=== PATIENT | female | born 1955 | race Two or more races ===

== ENCOUNTER 2021-04-07 09:31 | Outpatient (AMBR) | payer MEDICARE, MEDICAID, SELFPAY ==
--- NOTE | 2021-03-31 15:29 | PT.OIERPT ---
PT OP Initial Eval Patient Information Visit Reasons: low back pain Medical Diagnosis: M54.5 Treatment Dx #1: L/S Mobility Deficits Treatment Dx #2: Back Pain Start of Care: 03/31/21 Date of Onset: 5 years ago Initial Assessment Subjective Pt is a 66 y/o female c/o chronic back pain (04/22) with BLE numbness tingling R>L started several years ago but recently worsening. Pt mention that she used to work at [employer] and did a lot of lifting and loading heavy items. Pt's CT scan found several spinal stenosis L4-L5 (8 mm central bulge) and L5-S1 (5 mm central bulge). 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 Pt currently has limitation with walking, chores, self care, cooking, cleaning, recreational activities, and standing for long period of time. Objective L/S AROM: all motions are WFL excep extension to neutral with pain Hip PROM: all motions are WFL except IR bilaterally Hip MMTs Glute Med: 3-/5 Glute Max: 3-/5 Muscle Length: bilateral HS tightness R>L Special Test (+) slump Assessment Pt demonstrate back pain consistent with CT scan findings leading to decline function. Pt will attempt physical therapy if pain persist Pt will be refer back to provider for further consultation Short Term and Continuous Miner Goals 1) Increase L/S AROM WFL in 6 wks to be able to perform chores 2) Increase core strength WFL in 6 wks to be able to perform recreational activities 3) Increase hip MMTs grossly to 3+/5 in 6 wks to be able to ambulate more than 45 mins 4) Decrease back pain to 3/10 in 6 wks to be able to stand more than 45 mins 5) Indep with HEP Treatment Plan 1) Manual Therapy 2) Therapeutic Activities 3) Therapeutic Exercises 4) Modalities (ice, heat) 5) Balance Training Frequency and Duration 2 x wk for 6 wks Certification Dates: 03/31/21 to 07/01/21 Office Procedures PT Procedures PT Date of Service: 03/31/21 OP PT Eval Mod Complex 30 minutes: Yes
--- NOTE | 2021-04-07 11:15 | PT.ODAYNRPT ---
PT Outpatient Daily Note Date of Service: 04/07/21 OP Daily Note Visit Reasons: low back pain Outpatient Physical Therapy Treatment Date: 04/07/21 Subjective: Pt's back is the same. Pt still notice some numbness down her right LE Objective: Please see flow chart for list of ther ex performed Assessment: tolerate exercises; right knee pain limit her ability to pull on the LE with SKTC Plan: Continue with PT Length of Time (minutes) of Treatment: 30 Minutes Office Procedures PT Procedures PT Date of Service: 03/31/21 OP PT Eval Mod Complex 30 minutes: Yes PT Procedures PT Date of Service: 04/07/21 Therapeutic Exercise 30 minutes: Yes
== END 2021-04-12 23:59 | disposition home or self-care (01) ==
PROVIDERS: PCP Internal Medicine; Referring Provider Internal Medicine; Visit Provider Internal Medicine
DX: M54.5 Low back pain (principal); G89.29 Other chronic pain; R20.0 Anesthesia of skin; R20.2 Paresthesia of skin; R26.2 Difficulty in walking, not elsewhere classified
CPT/HCPCS: 97110; 97162

== ENCOUNTER 2021-05-11 11:26 | Outpatient (AMBR) | payer MEDICARE, MEDICAID, SELFPAY ==
--- NOTE | 2021-04-18 09:31 | PT.ODAYNRPT ---
PT Outpatient Daily Note Date of Service: 04/18/21 OP Daily Note Visit Reasons: low back pain Outpatient Physical Therapy Treatment Date: 04/18/21 Subjective: Pt mention that her back was better after last treatment session, however, the long days without PT seems to make her back hurt again Objective: Please see flow chart for list of ther ex performed Assessment: tolerate exercises with minimal pain Plan: Continue with PT Length of Time (minutes) of Treatment: 30 Minutes Office Procedures PT Procedures PT Date of Service: 04/18/21 Therapeutic Exercise 30 minutes: Yes
--- NOTE | 2021-04-20 09:34 | PT.ODAYNRPT ---
PT Outpatient Daily Note Date of Service: 04/20/21 OP Daily Note Visit Reasons: low back pain Outpatient Physical Therapy Treatment Date: 04/20/21 Subjective: Pt mention that her back is better and does not want the heat with exercises today. Objective: Please see flow chart for list of ther ex performed Assessment: performed all exercises well without heat today. cues to pace with side step due to noted hip fatigue after 4x. Also cue patient to decrease use of bilateral bicep with row exercise Plan: Continue with PT Length of Time (minutes) of Treatment: 30 Minutes Office Procedures PT Procedures PT Date of Service: 04/18/21 Therapeutic Exercise 30 minutes: Yes PT Procedures PT Date of Service: 04/20/21 Therapeutic Exercise 30 minutes: Yes
--- NOTE | 2021-05-11 12:01 | PT.ODAYNRPT ---
PT Outpatient Daily Note Date of Service: 05/11/21 OP Daily Note Visit Reasons: low back pain Outpatient Physical Therapy Treatment Date: 05/11/21 Subjective: Pain in still in my back and my knee hurts. My back feels better with this. (pt referring to traction) Objective: Please see flowsheet for therex performed Assessment: Pt tolerated all therex with some discomfort throughout session. Added manual traction to decrease pain to low back. Pt reported feels better when manual traction applied for low back. Plan: Continue with POC Length of Time (minutes) of Treatment: 30 Minutes Office Procedures PT Procedures PT Date of Service: 04/18/21 Therapeutic Exercise 30 minutes: Yes PT Procedures PT Date of Service: 05/11/21 Therapeutic Exercise 30 minutes: Yes PT Procedures PT Date of Service: 04/20/21 Therapeutic Exercise 30 minutes: Yes
== END 2021-05-13 23:59 | disposition home or self-care (01) ==
PROVIDERS: PCP Internal Medicine; Referring Provider Internal Medicine; Visit Provider Internal Medicine
DX: M54.5 Low back pain (principal); G89.29 Other chronic pain; R20.0 Anesthesia of skin; R20.2 Paresthesia of skin; R26.2 Difficulty in walking, not elsewhere classified
CPT/HCPCS: 97110

== ENCOUNTER → 2024-10-01 | Outpatient (CLI) | payer OTHER, MEDICAID, SELFPAY ==
[2024-10-01 15:51] LABS: Collection Type, Urine Clean Catch
[2024-10-01 17:19] LABS: Bacteria,Urine Rare; Bilirubin,Urine Negative (Negative); Blood,Urine Negative (Negative); Clarity,Urine Clear (Clear/Hazy); Color,Urine Lt-Yellow (Lt Yel-Yel); Glucose, Urine Negative (Negative); Ketones,Urine Negative (Negative); Leukocyte Esterase,Urine Negative (Negative); Nitrite,Urine Positive (Negative); PH,Urine 6.5 (5.0-7.0); Protein,Urine Negative (Neg - Trace); RBC,Urine < 1 /hpf (0-3); Specific Gravity,Urine 1.019 (1.001-1.035); Squamous Epithelial Cell,Urine 1 /hpf (0-5); Urobilinogen,Urine Negative mg/dL (0.0-1.0); WBC,Urine 5 /hpf (0-5)
== END | disposition home or self-care (01) ==
LOC: COPL 15:46 → SLDO 15:47
PROVIDERS: PCP Physician Assistant; Referring Provider Physician Assistant; Visit Provider Physician Assistant
DX: N39.0 Urinary tract infection, site not specified (principal)
CPT/HCPCS: 81001; 87077; 87086; 87186

== ENCOUNTER → 2024-10-19 | Outpatient (CLI) | payer OTHER, MEDICAID, SELFPAY ==
[2024-10-19 17:37] LABS: Collection Type, Urine Clean Catch
[2024-10-19 18:42] LABS: Bacteria,Urine 1+; Bilirubin,Urine Negative (Negative); Blood,Urine Negative (Negative); Clarity,Urine Clear (Clear/Hazy); Color,Urine Lt-Yellow (Lt Yel-Yel); Glucose, Urine Negative (Negative); Ketones,Urine Negative (Negative); Leukocyte Esterase,Urine Negative (Negative); Nitrite,Urine Negative (Negative); PH,Urine 6.5 (5.0-7.0); Protein,Urine Negative (Neg - Trace); RBC,Urine 1 /hpf (0-3); Specific Gravity,Urine 1.016 (1.001-1.035); Squamous Epithelial Cell,Urine 1 /hpf (0-5); Urobilinogen,Urine Negative mg/dL (0.0-1.0); WBC,Urine 5 /hpf (0-5)
== END | disposition home or self-care (01) ==
LOC: SLDO 17:30
PROVIDERS: PCP Family Medicine; Referring Provider Family Medicine; Visit Provider Family Medicine
DX: N39.0 Urinary tract infection, site not specified (principal)
CPT/HCPCS: 81001; 87077; 87086; 87186

== ENCOUNTER → 2024-10-26 | Outpatient (CLI) | payer OTHER, SELFPAY ==
[2024-10-26 10:45] LABS: Basophils % (Auto) 1 % (0-2.5); Eosinophils # (Auto) 0.1 Thou/mm3 (0.0-0.5); Eosinophils % (Auto) 3 % (0-10); Hematocrit 46.1 % (36.0-46.0); Hemoglobin 14.8 g/dL (12.0-16.0); Immature Granulocytes % (Auto) 0 % (0-0); Immature Granulocytes Auto 0.01 Thou/mm3 (0.00-0.00); Lymphocytes # (Auto) 1.5 Thou/mm3 (1.0-4.8); Lymphocytes % (Auto) 36 % (10-50); Mean Corpuscular HGB Conc 32.1 g/dl (31.0-37.0); Mean Corpuscular Hemoglobin 26.3 pg (25.0-35.0); Mean Corpuscular Volume 82 fL (80-100); Monocytes # (Auto) 0.3 Thou/mm3 (0.0-0.8); Monocytes % (Auto) 6 % (0-12); Neutrophils # (Auto) 2.3 Thou/mm3 (1.8-7.7); Neutrophils % (Auto) 54 % (37-80); Nucleated Red Blood Cell % 0 /100 WBC (0); Platelet Count 230 Thou/mm3 (140-440); RDW Standard Deviation 40.6 fL (36.4-46.3); Red Blood Count 5.62 Miln/mm3 (4.00-5.20); White Blood Count 4.2 Thou/mm3 (3.6-11.0)
--- NOTE | 2024-10-26 10:53 | EKG_ITS ---
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
[2024-10-26 11:11] LABS: Alanine Aminotransferase 14 U/L (10-49); Albumin, Serum 4.7 gm/dL (3.4-4.8); Alkaline Phosphatase 79 U/L (46-116); Anion Gap 9 (7-16); Aspartate Amino Transferase 22 U/L (0-34); BUN/Creatinine Ratio 18 Ratio (12-20); Bilirubin,Total 0.6 mg/dL (0.3-1.2); Blood Urea Nitrogen 18 mg/dL (9-23); Carbon Dioxide 30.2 mMol/L (20.0-31.0); Chloride 102 mMol/L (98-107); Globulin 2.3 gm/dL (2.3-3.5); Glucose 109 mg/dL (74-106); Osmolality,Calculated 284 (275-295); Potassium 3.8 mMol/L (3.4-5.1); Sodium 141 mMol/L (136-145); eGFR > 60 See Note
== END | disposition home or self-care (01) ==
LOC: CDIM 09:57 → COPL 10:00
PROVIDERS: PCP Family Medicine; Referring Provider Orthopaedic Surgery; Visit Provider Orthopaedic Surgery
DX: Z01.812 Encounter for preprocedural laboratory examination (principal); Z01.818 Encounter for other preprocedural examination
CPT/HCPCS: 36415; 80053; 85025; 87081; 93005

== ENCOUNTER → 2024-10-29 | Outpatient (CLI) | payer OTHER, MEDICAID, SELFPAY ==
--- NOTE | 2024-10-29 13:15 | XR_ITS ---
Examination: Diagnostic digital mammography, unilateral, right Computer aided detection 3-D breast Tomosynthesis, unilateral Date and time of exam: October 29, 2024 1316 hours INDICATIONS: Mammogram April 01, 2024 grouped microcalcifications probably benign April 01, 2024 Technique: Nonmagnified MLO, CC views of the right breast have been obtained, reconstructed from 3-D Tomosynthesis images. R2 computer aided detection program utilized for evaluation of suspicious masses and/or abnormal calcifications. 3-D Tomosynthesis images obtained. Findings: Scattered areas of fibroglandular density Benign calcifications No suspicious masses Impression: BI-RADS category 2: Benign findings Return to yearly follow-up mammography
== END | disposition home or self-care (01) ==
LOC: CDIM 13:00
PROVIDERS: PCP Family Medicine; Referring Provider Physician Assistant; Visit Provider Physician Assistant
DX: R92.323 Mammographic fibroglandular density, bilateral breasts (principal)
CPT/HCPCS: 77061; 77065; G0279

== ENCOUNTER → 2025-01-13 | Outpatient (CLI) | payer OTHER, MEDICAID, SELFPAY ==
--- NOTE | 2025-01-13 15:09 | XR_ITS ---
Examination: PA lateral chest 2 views TECHNIQUE: Upright PA lateral chest 2 views Exam date and time: November 15, 2024 at 1521 hours INDICATIONS: Shortness of breath beginning one month ago. FINDINGS: Normal heart size. No pneumonia or pulmonary edema Moderate thoracic spondylosis IMPRESSION: No active disease
[2025-01-13 16:03] LABS: Collection Type, Urine Clean Catch
[2025-01-13 16:32] LABS: Basophils % (Auto) 0 % (0-2.5); Eosinophils # (Auto) 0.2 Thou/mm3 (0.0-0.5); Eosinophils % (Auto) 3 % (0-10); Hematocrit 41.3 % (36.0-46.0); Hemoglobin 13.7 g/dL (12.0-16.0); Immature Granulocytes % (Auto) 0 % (0-0); Immature Granulocytes Auto 0.01 Thou/mm3 (0.00-0.00); Lymphocytes # (Auto) 1.7 Thou/mm3 (1.0-4.8); Lymphocytes % (Auto) 33 % (10-50); Mean Corpuscular HGB Conc 33.2 g/dl (31.0-37.0); Mean Corpuscular Hemoglobin 26.9 pg (25.0-35.0); Mean Corpuscular Volume 81 fL (80-100); Monocytes # (Auto) 0.4 Thou/mm3 (0.0-0.8); Monocytes % (Auto) 7 % (0-12); Neutrophils % (Auto) 57 % (37-80); Nucleated Red Blood Cell % 0 /100 WBC (0); Platelet Count 214 Thou/mm3 (140-440); RDW Standard Deviation 42.5 fL (36.4-46.3); Red Blood Count 5.09 Miln/mm3 (4.00-5.20); White Blood Count 5.3 Thou/mm3 (3.6-11.0)
[2025-01-13 16:39] LABS: Bilirubin,Urine Negative (Negative); Blood,Urine Negative (Negative); Clarity,Urine Clear (Clear/Hazy); Color,Urine Lt-Yellow (Lt Yel-Yel); Culture Indicated,Urine Not Indicated; Glucose, Urine Negative (Negative); Ketones,Urine Negative (Negative); Leukocyte Esterase,Urine Negative (Negative); Nitrite,Urine Negative (Negative); Protein,Urine Negative (Neg - Trace); RBC,Urine 1 /hpf (0-3); Specific Gravity,Urine 1.028 (1.001-1.035); Squamous Epithelial Cell,Urine < 1 /hpf (0-5); Urobilinogen,Urine Negative mg/dL (0.0-1.0); WBC,Urine < 1 /hpf (0-5)
[2025-01-13 16:40] LABS: Alanine Aminotransferase 13 U/L (10-49); Albumin, Serum 4.4 gm/dL (3.4-4.8); Alkaline Phosphatase 87 U/L (46-116); Anion Gap 8 (7-16); Aspartate Amino Transferase 20 U/L (0-34); BUN/Creatinine Ratio 23 Ratio (12-20); Bilirubin,Total 0.3 mg/dL (0.3-1.2); Blood Urea Nitrogen 23 mg/dL (9-23); Calcium 9.5 mg/dL (8.3-10.6); Calcium (Corrected) 9.5 mg/dL (8.5-10.1); Carbon Dioxide 28.6 mMol/L (20.0-31.0); Chloride 108 mMol/L (98-107); Globulin 2.2 gm/dL (2.3-3.5); Glucose 100 mg/dL (74-106); Osmolality,Calculated 292 (275-295); Sodium 145 mMol/L (136-145); Total Protein 6.6 gm/dL (5.7-8.2); eGFR > 60 See Note
[2025-01-13 17:24] LABS: D-Dimer 878 ng/mL (<600)
== END | disposition home or self-care (01) ==
LOC: CDIM 15:09 → COPL 15:29
PROVIDERS: PCP Nurse Practitioner Family; Referring Provider Nurse Practitioner Family; Visit Provider Radiology Diagnostic Radiology
DX: R06.02 Shortness of breath (principal)
CPT/HCPCS: 36415; 71046; 80053; 81001; 85025; 85379

== ENCOUNTER → 2025-01-27 | Outpatient (CLI) | payer OTHER, MEDICAID, SELFPAY ==
--- NOTE | 2025-01-27 09:30 | XR_ITS ---
Examination: CT chest with intravenous contrast 2-D sagittal and coronal reconstructions Exam date and time: January 27, 2025 1007 hours INDICATIONS: Dyspnea on exertion one month CTDI:vol (mGy) 11.5 DLP: (mGycm) 368 Technique: Multiple axial sections of the thorax have been obtained. Sections have been obtained, 3 mm slice thickness. Mediastinal and lung density settings have been obtained. Intravenous contrast administered, 60 cc Isovue-370. 2-D sagittal, coronal images obtained. Low dose protocols were performed. One or more of the following dose reduction techniques were used; automated exposure control, adjustment of the mA and/or KV according to patient size, use of iterative reconstruction technique. Findings: No thoracic aortic aneurysmal dilatation or dissection Pulmonary artery segments are not enlarged No pulmonary artery filling defects Mild calcification left anterior descending coronary artery No pneumonia or pulmonary edema or pleural disease 9 mm pleural-based pulmonary nodule posterior left lung image 109 No visualized liver or splenic lesion Gallstones No pancreatic or adrenal mass No hydronephrosis IMPRESSION: No mediastinal lymphadenopathy No pneumonia, pulmonary edema or pleural disease. A 9 mm nodule posterior left lung, with this study as baseline recommend 6 month follow-up CT chest without contrast
== END | disposition home or self-care (01) ==
LOC: CCTX 09:20
PROVIDERS: PCP Family Medicine; Referring Provider Nurse Practitioner Family; Visit Provider Nurse Practitioner Family
DX: R91.1 Solitary pulmonary nodule (principal)
CPT/HCPCS: 71260; A4649; Q9967

== ENCOUNTER → 2025-02-15 | Outpatient (CLI) | payer OTHER, SELFPAY ==
[2025-02-15 10:39] LABS: Collection Type, Urine Clean Catch
[2025-02-15 11:34] LABS: Bilirubin,Urine Negative (Negative); Blood,Urine Negative (Negative); Clarity,Urine Clear (Clear/Hazy); Color,Urine Lt-Yellow (Lt Yel-Yel); Culture Indicated,Urine Not Indicated; Glucose, Urine Negative (Negative); Ketones,Urine Negative (Negative); Leukocyte Esterase,Urine Negative (Negative); Nitrite,Urine Negative (Negative); PH,Urine 6.5 (5.0-7.0); Protein,Urine Negative (Neg - Trace); RBC,Urine 4 /hpf (0-3); Squamous Epithelial Cell,Urine 2 /hpf (0-5); Urobilinogen,Urine Negative mg/dL (0.0-1.0); WBC,Urine 1 /hpf (0-5)
[2025-02-15 11:38] LABS: Glucose Estimated Average 114 mg/dL (80-131); Hemoglobin A1C 5.6 % Hgb (4.8-6.0)
[2025-02-15 11:39] LABS: Cardiac Risk Estimate 3.1 RATIO (3.7-5.6); Cholesterol 146 mg/dL (132-200); HDL Cholesterol 47 mg/dL (40-60); LDL Cholesterol,Calculated 82 mg/dL (0-130); Thyroid Stimulating Hormone 1.05 uIU/mL (0.55-4.78); Triglycerides 86 mg/dL (30-150); Vitamin D 25 Hydroxy Total 39.9 ng/mL (7.3-40.2)
== END | disposition home or self-care (01) ==
LOC: COPL 09:54
PROVIDERS: PCP Nurse Practitioner Family; Referring Provider Nurse Practitioner Family; Visit Provider Nurse Practitioner Family
DX: Z00.00 Encounter for general adult medical examination without abnormal findings (principal)
CPT/HCPCS: 36415; 80061; 81001; 82306; 83036; 84443

== ENCOUNTER → 2025-03-15 | Outpatient (CLI) | payer OTHER, SELFPAY ==
--- NOTE | 2025-03-15 11:30 | XR_ITS ---
Examination: Screening digital mammography, bilateral Computer aided detection 3-D breast Tomosynthesis, bilateral Date and time of exam: March 15, 2025 1133 hours Compared to mammograms dating to October 20, 2018 Indication: Screening Technique: Nonmagnified MLO, CC views of the breasts to been obtained, reconstructed from 3-D Tomosynthesis images. R2 computer aided detection program utilized for evaluation of suspicious masses and/or abnormal calcifications. 3-D Tomosynthesis images obtained. Findings: Scattered areas of fibroglandular density. Grouped microcalcifications retroareolar region right breast unchanged which appear benign 8mm focal asymmetry nipple level right breast posterior depth, 9.2 cm from the nipple Impression: BI-RADS Category 0: Incomplete: Need additional imaging evaluation 8 mm focal asymmetry nipple level right breast posterior depth, 9.2 cm from the nipple, recommend follow-up spot tomographic CC view, spot tomographic MLO view upper right breast posterior depth, right breast sonography to complete the workup
== END | disposition home or self-care (01) ==
LOC: CDIM 11:28
PROVIDERS: Referring Provider Family Medicine; Visit Provider Family Medicine
DX: Z12.31 Encounter for screening mammogram for malignant neoplasm of breast (principal); N64.89 Other specified disorders of breast; R92.8 Other abnormal and inconclusive findings on diagnostic imaging of breast
CPT/HCPCS: 77063; 77067

== ENCOUNTER → 2025-03-29 | Outpatient (CLI) | payer OTHER, MEDICAID, SELFPAY ==
--- NOTE | 2025-03-29 | XR_ITS ---
Examination: Lumbar spine, 5 views Technique: Lumbar spine AP, lateral, coned lateral lower lumbar spine, bilateral obliques 5 views Exam date and time: March 29, 2025 1251 hours Comparison February 28, 2024 INDICATIONS: Low back pain 5 months, history lumbar spine surgery one year ago. FINDINGS: Stable alignment transpedicular lumbar fusion L3-S1 with disc spacers Moderate to advanced degenerative disc disease above the fusion site, L1-L2, L2-L3 No lumbar fracture IMPRESSION: Stable and satisfactory alignment lumbar fusion L3-S1 Moderate to advanced degenerative disc disease above the fusion site, L1-L2, L2-L3
== END | disposition home or self-care (01) ==
PROVIDERS: PCP Family Medicine; Referring Provider Orthopaedic Surgery Orthopaedic Surgery of the Spine; Visit Provider Orthopaedic Surgery Orthopaedic Surgery of the Spine
DX: M51.369 Other intervertebral disc degeneration, lumbar region without mention of lumbar back pain or lower extremity pain (principal); Z47.89 Encounter for other orthopedic aftercare
CPT/HCPCS: 72110

== ENCOUNTER → 2025-04-02 | Outpatient (CLI) | payer OTHER, MEDICAID, SELFPAY ==
--- NOTE | 2025-04-02 11:15 | XR_ITS ---
Examination: Breast ultrasound, unilateral, right complete Date and time of exam: April 02, 2025 1124 hours INDICATIONS: Mammogram March 15, 2025 8mm focal asymmetry nipple level right breast posterior depth Technique: Real-time briceno scale ultrasonographic imaging performed right breast including all 4 quadrants as well as nipple retroareolar and axillary region. Findings: 6:00 cyst 7 x 5 mm No suspicious solid nodules IMPRESSION: BI-RADS Category 2: Benign findings
--- NOTE | 2025-04-02 11:45 | XR_ITS ---
Examination: Diagnostic digital mammography, unilateral, right Computer aided detection 3-D breast Tomosynthesis, unilateral Date and time of exam: April 02, 2025 1135 hours INDICATIONS: 8 mm focal asymmetry nipple level right breast posterior depth on mammogram March 15, 2025 Technique: Nonmagnified MLO, CC views of the right breast have been obtained, reconstructed from 3-D Tomosynthesis images. R2 computer aided detection program utilized for evaluation of suspicious masses and/or abnormal calcifications. 3-D Tomosynthesis images obtained. Findings: Scattered areas of fibroglandular density Stable grouped microcalcifications retroareolar region right breast Stable focal asymmetry posterior right breast slightly outer right breast on the spot compression CC view nipple level right breast on the MLO view Impression: BI-RADS category 3: Probably benign findings Recommend 6 month bilateral mammography follow-up
== END | disposition home or self-care (01) ==
LOC: CDIM 11:11
PROVIDERS: PCP Family Medicine; Referring Provider Family Medicine; Visit Provider Family Medicine
DX: R92.331 Mammographic heterogeneous density, right breast (principal)
CPT/HCPCS: 76641; 77061; 77065; G0279

== ENCOUNTER 2025-04-28 11:01 | Emergency (ER) | payer OTHER, MEDICAID, SELFPAY ==
[2025-04-28 11:23] VITALS: BP 134/83; PULSE 68; RESP 18; TEMP 37.2; O2SAT 99; BMI 30.9
--- NOTE | 2025-04-28 11:30 | XR_ITS ---
Examination: CT brain head without contrast. 2-D sagittal coronal reconstructions Date and time of exam:April 28, 2025 1333 hours INDICATIONS: Headaches dizziness beginning today CTDI: vol (mGy):45.2 DLP: (mGycm):862 Technique: Multiple CT axial sections of the brain have been obtained, 5 mm slice thickness. Contrast has not been administered. 2-D sagittal, coronal reconstructions have been obtained Low dose protocols were performed. One or more of the following dose reduction techniques were used; automated exposure control, adjustment of the mA and/or KV according to patient size, use of iterative reconstruction technique. Findings: No significant ventricular enlargement. Intra-axial or extra-axial hemorrhage density is not seen. No mass effect or midline shift Basal cisterns are not remarkable. Fourth ventricle is midline. Cranial vault intact. Impression: Negative for acute hemorrhage, mass effect or midline shift Advise clinical correlation follow-up accordingly
--- NOTE | 2025-04-28 11:30 | EKG_ITS ---
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
--- NOTE | 2025-04-28 11:30 | PD.EDRME ---
Rapid Medical Screening Exam RME Arrival date/time: 04/28/25 11:01 70-year-old female presents to the emergency department as send she is currently being treated for UTI patient reports dizziness and headache Chief Complaint: Urogenital-Female Vital signs: Vital Signs Temperature 98.9 F 04/28/25 11:23 Pulse Rate 68 04/28/25 11:23 Respiratory Rate 18 04/28/25 11:23 Blood Pressure 134/83 H 04/28/25 11:23 Pulse Oximetry (%) 99 04/28/25 11:23 Oxygen Delivery Method Room Air 04/28/25 11:23
[2025-04-28] MEDS: MECLIZINE HCL 25 MG TABLET 50 MG PO (11:35)
[2025-04-28 11:45] LABS: Basophils # (Auto) 0.0 Thou/mm3 (0.0-0.2); Basophils % (Auto) 0 % (0-2.5); Eosinophils # (Auto) 0.1 Thou/mm3 (0.0-0.5); Eosinophils % (Auto) 1 % (0-10); Hematocrit 40.6 % (36.0-46.0); Hemoglobin 13.9 g/dL (12.0-16.0); Immature Granulocytes Auto 0.01 Thou/mm3 (0.00-0.00); Lymphocytes # (Auto) 1.0 Thou/mm3 (1.0-4.8); Lymphocytes % (Auto) 20 % (10-50); Mean Corpuscular HGB Conc 34.2 g/dl (31.0-37.0); Mean Corpuscular Hemoglobin 27.1 pg (25.0-35.0); Mean Corpuscular Volume 79 fL (80-100); Monocytes # (Auto) 0.2 Thou/mm3 (0.0-0.8); Monocytes % (Auto) 4 % (0-12); Neutrophils # (Auto) 3.6 Thou/mm3 (1.8-7.7); Neutrophils % (Auto) 74 % (37-80); Nucleated Red Blood Cell # 0.00 Thou/mm3 (0.00-0.00); Nucleated Red Blood Cell % 0 /100 WBC (0); Platelet Count 206 Thou/mm3 (140-440); RDW Standard Deviation 39.8 fL (36.4-46.3); Red Blood Count 5.12 Miln/mm3 (4.00-5.20); White Blood Count 4.8 Thou/mm3 (3.6-11.0)
[2025-04-28 12:06] LABS: Alanine Aminotransferase 10 U/L (10-49); Albumin, Serum 4.4 gm/dL (3.4-4.8); Albumin/Globulin Ratio 1.8 (1.2-2.2); Alkaline Phosphatase 68 U/L (46-116); Anion Gap 11 (7-16); Aspartate Amino Transferase 19 U/L (0-34); BUN/Creatinine Ratio 12 Ratio (12-20); Bilirubin,Total 0.6 mg/dL (0.3-1.2); Blood Urea Nitrogen 12 mg/dL (9-23); Calcium 9.2 mg/dL (8.3-10.6); Calcium (Corrected) 9.2 mg/dL (8.5-10.1); Carbon Dioxide 27.9 mMol/L (20.0-31.0); Chloride 104 mMol/L (98-107); Creatinine (Component) 1.0 mg/dL (0.6-1.3); Estimated Creatinine Clearance 50.2 mL/min (>60); Globulin 2.5 gm/dL (2.3-3.5); Glucose 190 mg/dL (74-106); Lipase 23 U/L (12-53); Osmolality,Calculated 289 (275-295); Potassium 3.4 mMol/L (3.4-5.1); Sodium 143 mMol/L (136-145); Total Protein 6.9 gm/dL (5.7-8.2); eGFR > 60 See Note
[2025-04-28 12:11] LABS: Troponin I 0.051 ng/mL (0.0-0.045)
[2025-04-28 12:19] LABS: Collection Type, Urine Clean Catch
[2025-04-28 12:34] LABS: Bilirubin,Urine Negative (Negative); Blood,Urine Negative (Negative); Clarity,Urine Clear (Clear/Hazy); Color,Urine Lt-Yellow (Lt Yel-Yel); Culture Indicated,Urine Not Indicated; Glucose, Urine Negative (Negative); Ketones,Urine Negative (Negative); Leukocyte Esterase,Urine Negative (Negative); Nitrite,Urine Negative (Negative); PH,Urine 6.5 (5.0-7.0); Protein,Urine Negative (Neg - Trace); RBC,Urine 3 /hpf (0-3); Specific Gravity,Urine 1.017 (1.001-1.035); Squamous Epithelial Cell,Urine < 1 /hpf (0-5); Urobilinogen,Urine Negative mg/dL (0.0-1.0); WBC,Urine < 1 /hpf (0-5)
[2025-04-28 13:05] VITALS: BP 149/85; PULSE 68; RESP 20; TEMP 36.8; O2SAT 95
--- NOTE | 2025-04-28 13:27 | PD.EDDIZZY ---
ED Dizzyness RME/HPI General Chief Complaint: Urogenital-Female Stated Complaint: HEAD SPINNING WHEN LAYING DOWN; TREATED FOR UTI Time Seen by Provider: 04/28/25 13:09 Arrival date/time: 04/28/25 11:01 Mode of arrival: ambulatory Limitations: no limitations RME / HPI RME / HPI Narrative: 70-year-old female who was brought in with by her daughter who is here today with dizziness. She states when she turns her head to the sides, she develops increased dizziness that is described as the room spinning. This started this morning. She had no falls or injuries. She has no unilateral weakness. Has no vision changes. Has no difficulty with speech. She denies any weakness or paresthesias. She is currently taking Macrobid for UTI. She did have a single episode of emesis this morning. She has no current nausea or vomiting. MD complaint: dizziness Timing: gradual onset Description: room spinning History of similar episodes: No Related Data Home Medications ?Medication ?Instructions ?Recorded ?Confirmed triamterene 50 mg capsule 50 mg PO QDAY 03/15/19 03/05/22 famotidine 20 mg tablet 20 mg PO BID 09/21/19 03/05/22 metoprolol tartrate 50 mg tablet 50 mg PO BID 09/21/19 03/05/22 montelukast 10 mg tablet 10 mg PO QPM 09/21/19 03/05/22 estradiol 10 mcg vaginal tablet 10 mcg vaginal DIRECTED 03/05/22 03/05/22 (Vagifem) Previous Rx's ?Medication ?Instructions ?Recorded ibuprofen 600 mg tablet 600 mg PO Q6H #30 tabs 05/28/24 tramadol 50 mg tablet 50 mg PO BID PRN pain #6 tabs 05/28/24 cephalexin 500 mg capsule 500 mg PO Q8H 7 days #15 caps 04/28/25 Allergies Allergy/AdvReac Type Severity Reaction Status Date / Time No Known Allergies Allergy Unknown Uncoded 04/28/25 11:04 Review of Systems Review of Systems Systems Reviewed: All systems reviewed, normal except as documented ED Exam General Limitations: Present no limitations General appearance: Present alert and in no apparent distress Head Head exam: Present atraumatic Eye Eye exam: Present normal appearance, PERRL and EOMI ENT ENT exam: Present normal exam, normal oropharynx and mucous membranes moist Neck Neck exam: Present normal inspection, full ROM and trachea midline Chest Chest inspection: Present normal inspection and symmetric chest wall rise Respiratory Respiratory exam: Present normal lung sounds bilaterally Cardiovascular Cardiovascular exam: Present regular rate, normal rhythm and normal heart sounds Abdominal Exam Abdominal exam: Present soft and normal bowel sounds Extremities Exam Extremities exam: Present normal inspection and full ROM Back Exam Back exam: Present normal inspection and full ROM Neurological Exam Neurological exam: Present alert, oriented X3 and other (Hallpike maneuvers are positive, she has increase in dizziness and a sense that the room is spinning when her head is tilted to the right.) Psychiatric Psychiatric exam: Present normal affect and normal mood Skin Skin exam: Present warm, dry, intact and normal color Course Quality Measures none Orders Category Date Time Status EKG (ED ONLY) *Do not use* NOW Care 04/28/25 11:[address] head/brain wo con Stat Exams 04/28/25 11:30 Completed EKG (ED Only) Stat Exams 04/28/25 11:30 Draft CBC Stat Lab 04/28/25 11:34 Completed Comprehensive Metabolic Panel Stat Lab 04/28/25 11:34 Completed Lipase Stat Lab 04/28/25 11:34 Completed Troponin I Stat Lab 04/28/25 11:34 Completed Troponin I Stat Lab 04/28/25 13:28 Completed UA, C/S IF [Urinalysis, C/S if Indicated] Stat Lab 04/28/25 12:10 Completed Meclizine HCl [Antivert] Med 04/28/25 11:30 Discontinued 50 mg PO X1 ONE Vital Signs Vital signs: Vital Signs Temperature 98.9 F 04/28/25 11:23 Pulse Rate 68 04/28/25 11:23 Respiratory Rate 18 04/28/25 11:23 Blood Pressure 134/83 H 04/28/25 11:23 Pulse Oximetry (%) 99 04/28/25 11:23 Oxygen Delivery Method Room Air 04/28/25 11:23 Dizziness MDM Narrative MDM Narrative:: 70-year-old female who was brought in with by her daughter who is here today with dizziness. She states when she turns her head to the sides, she develops increased dizziness that is described as the room spinning. This started this morning. She had no falls or injuries. She has no unilateral weakness. Has no vision changes. Has no difficulty with speech. She denies any weakness or paresthesias. She is currently taking Macrobid for UTI. She did have a single episode of emesis this morning. She has no current nausea or vomiting. On exam, patient is nontoxic-appearing and in no visible signs of distress. Her vital signs are stable. Hallpike maneuvers are positive. We discussed this as a possible etiology of her symptoms in addition to the possibility of Macrobid allergy. We discussed her workup, CBC shows no leukocytosis or anemia. Her glucose is elevated at 190, metabolic panel was unremarkable. Her troponin was slightly elevated at 0.050, a repeat troponin was obtained and there is no significant change. There is no upward trend of this. She has no chest pain or shortness of breath. Her EKG is unremarkable. Patient will discontinue her Macrobid. She will perform Hallpike maneuvers at home. Will provide a prescription of cephalexin for UTI. By urinalysis, it does appear that her UTI is improving. We discussed return precautions. She agrees to return as needed for worsening or emergent changes as needed Patient data External records reviewed:: None Clinical information provided by:: patient Social determinants that could affect healthcare access:: none Patient has the following chronic illnesses:: Hypertension How is presenting disease/condition affected by chronic disease/condition?: no chronic disease Evaluation data The following diagnostics were reviewed and interpreted by me:: lab results Lab and/or radiology exams considered but not ordered:: n/a Interpretation Summary: n/a Medications / Prescriptions Medications or Prescriptions considered but not ordered:: n/a Medication administrations:: Medication Administration History Discontinued Medications Meclizine HCl (Meclizine Hcl 25 Mg Tablet) 50 mg PO X1 ONE Stop: 04/28/25 11:31 Last Admin: 04/28/25 11:35 Dose: 50 mg Documented By: n/a Consultations Consultation(s) initiated? (list below): No Diagnosis Most likely diagnosis given after review of the tests above:: n/a Admission Indicated Admission indicated?: not indicated Admission Request Was there a request for admission?: No Disposition Plan Disposition Plan: Discharge Discharge Attestation Discharge Attestation: The patient and all family members were given an opportunity to ask questions and understood the discharge instructions. Discharge instructions specifically effects, indications for sooner follow up or return to the emergency department, and the expected course of current diagnosis. Patient condition: Stable Discharge Plan Plan Patient Disposition: HOME (Self Care) Patient condition on transfer: Stable Prescriptions/Referrals Prescriptions/Med Rec: New cephalexin 500 mg capsule 500 mg PO Q8H 7 Days Qty: 15 0RF No Action estradiol [Vagifem] 10 mcg tablet 10 mcg vaginal DIRECTED Patient Comments: Twice a week famotidine 20 mg tablet 20 mg PO BID montelukast 10 mg tablet 10 mg PO QPM metoprolol tartrate 50 mg tablet 50 mg PO BID triamterene 50 mg Capsule 50 mg PO QDAY tramadol 50 mg tablet 50 mg PO BID PRN (Reason: pain) Qty: 6 0RF ibuprofen 600 mg tablet 600 mg PO Q6H Qty: 30 0RF Referrals: Michael Reagan MD [Primary Care Provider] - In 1 week Problem List Clinical Impression: Vertigo Patient/Caregiver Discharge Instructions Education Materials: Anatomy of the Inner Ear Additional Instructions: - Performed Major maneuver exercises at home. - Discontinue current antibiotics. We will send a prescription for Keflex to your pharmacy. - Follow-up with your primary doctor within the next week. - Return here as needed for any worsening or emergent changes. Print Language: Yakut Stand Alone Forms: Ayesha Award Info., Patient Portal Info Letter
[2025-04-28 14:20] LABS: Troponin I 0.050 ng/mL (0.0-0.045)
[2025-04-28 16:26] VITALS: BP 141/88; PULSE 61; RESP 22; TEMP 36.9; O2SAT 96
== END 2025-04-28 17:15 | disposition home or self-care (01) ==
PROVIDERS: Nurse Practitioner Primary Care; Physician Assistant Medical; Emergency Provider Emergency Medicine; PCP Family Medicine
DX: R42 Dizziness and giddiness (principal); R94.31 Abnormal electrocardiogram [ECG] [EKG]
CPT/HCPCS: 36415; 70450; 80053; 81001; 83690; 84484; 85025; 93005; 99284; A9270

== ENCOUNTER → 2025-05-21 | Outpatient (CLI) | payer OTHER, MEDICAID, SELFPAY | END | disposition home or self-care (01) | LOC: SLDO 14:24 | PROVIDERS: Referring Provider Physician Assistant; Visit Provider Physician Assistant | DX: N39.0 Urinary tract infection, site not specified (principal) | CPT/HCPCS: 87086 ==

== ENCOUNTER → 2025-06-09 | Outpatient (CLI) | payer OTHER, MEDICAID, SELFPAY ==
--- NOTE | 2025-06-09 15:00 | XR_ITS ---
Examination: CT lumbar spine, without contrast. 2-D sagittal reconstructions. 2-D coronal reconstructions. 3-D reconstructions. Date and time of exam:June 09, 2025 1506 hours, comparison September 14, 2019 INDICATIONS: Low back pain years, more severe post surgery 18 months ago CTDI: vol (mGy):35.5 DLP: (mGycm):1015 Technique: Multiple 1.25 mm axial sections of the lumbar spine without intravenous contrast have been obtained. 2-D sagittal and coronal reconstructions have been obtained. 3-D reconstructions have been obtained. Low dose protocols were performed. One or more of the following dose reduction techniques were used; automated exposure control, adjustment of the mA and/or KV according to patient size, use of iterative reconstruction technique. Findings: Transpedicular lumbar fusion with disc spacers L3-S1 with anatomic alignment, with laminectomies Moderate to advanced disc narrowing above the fusion site, L2-L3, L1-L2, T12-L1 No lumbar fracture No cortical bone destruction Postoperative change in the soft tissue at the lower 3 lumbar levels No focal lumbar disc protrusions IMPRESSION: Transpedicular lumbar fusion L3-S1 with anatomic alignment
== END | disposition home or self-care (01) ==
LOC: CCTX 14:57
PROVIDERS: PCP Family Medicine; Referring Provider Orthopaedic Surgery Orthopaedic Surgery of the Spine; Visit Provider Orthopaedic Surgery Orthopaedic Surgery of the Spine
DX: M43.27 Fusion of spine, lumbosacral region (principal)
CPT/HCPCS: 72131

== ENCOUNTER → 2025-07-02 | Outpatient (CLI) | payer OTHER, MEDICAID, SELFPAY ==
--- NOTE | 2025-07-02 | XR_ITS ---
Examination: CT abdomen and pelvis without contrast. Coronal 3-D reconstructions. Sagittal 2-D reconstructions. Date and time of exam:July 02, 2025, 1438 hrs. Indications: Upper abdominal pain beginning several months ago CTDI: vol (mGy): 11.5 DLP: (mGycm): 568 Technique: Axial images of the abdomen have been obtained, 3 mm slice thickness Intravenous contrast material has not been administered. Low dose protocols were performed. One or more of the following dose reduction techniques were used; automated exposure control, adjustment of the mA and/or KV according to patient size, use of iterative reconstruction technique. Findings: No focal liver or splenic lesions 14 mm calcified splenic artery aneurysm Gallstones Spleen is not enlarged No pancreatic or adrenal mass Moderate left renal scar formation, no hydronephrosis renal or ureteral calculi Aorta normal size No pericecal inflammatory change No bowel obstruction Atrophic uterus Contracted urinary bladder Transpedicular lumbar fusion with disc spacers L3-S1 with satisfactory alignment Advanced degenerative disc disease above the fusion site Impression: 14 mm calcified splenic artery aneurysm, recommend elective CTA abdomen postcontrast follow-up Cholelithiasis, recommend gallbladder sonography follow-up Moderate left renal parenchymal scar formation, no hydronephrosis or ureteral calculi No bowel obstruction or findings of appendicitis Transpedicular lumbar fusion L4 3 through S1 with satisfactory alignment, advanced degenerative disc disease above this fusion site
== END | disposition home or self-care (01) ==
PROVIDERS: PCP Nurse Practitioner Family; Referring Provider Nurse Practitioner Family; Visit Provider Nurse Practitioner Family
DX: I72.8 Aneurysm of other specified arteries (principal); K80.20 Calculus of gallbladder without cholecystitis without obstruction; N28.89 Other specified disorders of kidney and ureter; M43.27 Fusion of spine, lumbosacral region; M51.360 Other intervertebral disc degeneration, lumbar region with discogenic back pain only
CPT/HCPCS: 74176

== ENCOUNTER → 2025-08-04 | Outpatient (CLI) | payer OTHER, MEDICAID, SELFPAY ==
[2025-08-04 10:33] LABS: Anion Gap 10 (7-16); BUN/Creatinine Ratio 15 Ratio (12-20); Blood Urea Nitrogen 17 mg/dL (9-23); Calcium 9.7 mg/dL (8.3-10.6); Carbon Dioxide 30.5 mMol/L (20.0-31.0); Chloride 103 mMol/L (98-107); Creatinine (Component) 1.1 mg/dL (0.6-1.3); Glucose 103 mg/dL (74-106); Osmolality,Calculated 286 (275-295); Potassium 3.8 mMol/L (3.4-5.1); Sodium 143 mMol/L (136-145); eGFR 54 See Note
== END | disposition home or self-care (01) ==
LOC: COPL 09:27
PROVIDERS: PCP Nurse Practitioner Family; Referring Provider Nurse Practitioner Family; Visit Provider Nurse Practitioner Family
DX: I72.8 Aneurysm of other specified arteries (principal)
CPT/HCPCS: 36415; 80048

== ENCOUNTER → 2025-08-06 | Outpatient (CLI) | payer OTHER, MEDICAID, SELFPAY ==
--- NOTE | 2025-08-06 09:00 | XR_ITS ---
Examination: CTA abdomen, with intravenous contrast. 2-D sagittal and coronal reconstructions. 3-D reconstructions. Date and time of exam: August 06, 2025, 1033 hours, comparison July 02, 2025 INDICATIONS: Diagnosis splenic artery aneurysm, [address] study 07/02/2025 CTDI vol (mgy) 10.9 DLP (MGycm) 444 Technique: Multiple CTA images, 2.0 mm slice thickness, obtained abdomen, with the high-resolution 64 slice scanner. 100 cc Isovue-370 is administered intravenously. Sagittal and coronal 2-D reconstructions are obtained. 3-D reconstructions, angiographic images are obtained. 3-D postprocessing, including vascular maximum intensity projections. Low dose protocols were performed. One or more of the following dose reduction techniques were used; automated exposure control, adjustment of the mA and/or KV according to patient size, use of iterative reconstruction technique. Findings: No focal liver lesion Gallstones No pancreatic mass Aorta is not enlarged Stable 14 mm calcified splenic artery aneurysm No hydronephrosis Negative for ascites No abdominal lymphadenopathy IMPRESSION: Stable 14 mm calcified splenic artery aneurysm
== END | disposition home or self-care (01) ==
LOC: SCAT 08:41
PROVIDERS: PCP Nurse Practitioner Family; Referring Provider Nurse Practitioner Family; Visit Provider Nurse Practitioner Family
DX: I72.8 Aneurysm of other specified arteries (principal)
CPT/HCPCS: 74175; A4649; Q9967

== ENCOUNTER → 2025-08-17 | Outpatient (CLI) | payer OTHER, MEDICAID, SELFPAY ==
--- NOTE | 2025-08-17 16:00 | XR_ITS ---
Examination: Abdomen sonogram, Limited Date and time of exam: August 17, 2025, 1609 hours INDICATIONS: History splenic artery aneurysm, gallstones Technique: Real-time briceno scale transabdominal sonographic images of the upper abdomen obtained. Findings: Multiple gallstones Normal gallbladder wall 0.2 cm Normal common bile duct 0.2 cm Pancreatic head 2.5 cm Liver 12.6 cm fatty infiltration smooth contour Normal hepatopetal portal venous flow Patent IVC IMPRESSION: Cholelithiasis, negative for cholecystitis
== END | disposition home or self-care (01) ==
LOC: CDIM 15:42
PROVIDERS: Referring Provider Nurse Practitioner Family; Visit Provider Nurse Practitioner Family
DX: K80.20 Calculus of gallbladder without cholecystitis without obstruction (principal)
CPT/HCPCS: 76705

== ENCOUNTER → 2025-08-26 | Outpatient (BNVA) | payer OTHER, MEDICAID, SELFPAY | END | disposition home or self-care (01) | PROVIDERS: PCP Family Medicine; Referring Provider Family Medicine; Visit Provider Urology | DX: N39.0 Urinary tract infection, site not specified (principal); Z87.898 Personal history of other specified conditions; I10 Essential (primary) hypertension | CPT/HCPCS: 99212; G0463 ==